=== PATIENT | male | born 1975 | race Caucasian/White ===

== ENCOUNTER 2018-11-16 10:00 | Outpatient (RCR) | payer MEDICAID, SELFPAY ==
--- NOTE | 2018-11-13 09:05 | HP.PTEVAL_ITS ---
Patient's Visit Information CRYSTAL OVALLES is a 43 year old M referred to Physical Therapy by Angelique Barclay DPM with a diagnosis of Left Ankle Tendonitits. Date of Evaluation: 11/13/18 Physical Therapist: Shaylee Carrion DPT - Visit Plan Frequency: 2x /Week Duration: 4 Weeks Plan: Focus on LE strength/stabilization with US as modality - Subjective Findings: Left ankle has been causing him problems for years- 1994 when he was in the - sprained really bad and then again in 1998. Recently its been hurting more when standing on it- he has no arch and tendonitits with OA. Has had x-rays of the foot and ankle. Pain is located along the lateral ankle joint and across the top of the joint and into the medial side. Worst: 07/25 Agg: standing, sitting. Eases: nothing Best: 11/25 has had prednisone- but has not had injections. No radiating pains- describes as throbbing, shooting, and achy pains. No N/T in the toes. Wears orthotics in the shoes- prescription in his work boots. Work: [employer]or- standing all day long- has a pad to stand on but they don't help. No significant changes in the past year to make his ankle hurt more. Normally in work boots but does wear sandles during the day if he needs to just run somewhere. Sleep: not disturbed. PMHx: 2 heart murmors when he was little Meds: none - Objective Posture: Fh, RS- does correct with verbal cueing but does not maintain. Gait: slightly antalgic- decreased stance on the left LE with poor heel/toe pattern. SLS: unable without LOB but will weight shift. HR/TR: able with UE A with pain. Observation: severe pes planus on the left. ROM: WFL in all planes with pain reported with end range inversion. Strength: Ankle: 4/5 throughout with pain during resisted inversion/eversion. Knee: 5/5, Hip: 4+/5 Core: fair. Flex: HS: severe Gastroc: mod Soleus: mild - Goals Goal 1:: Patient will be I with HEP and progression Goal Time Frame: 4-6 Weeks Goal 2:: Patient will SLS for 15 sec without LOB Goal Time Frame: 4-6 Weeks Goal 3:: Patient will ambulate >300 feet with a normalized gait pattern Goal Time Frame: 4-6 Weeks Goal 4:: Patient will report 5/10 pain for 1 week Goal Time Frame: 4-6 Weeks - Rehabilitation Potential Physical Therapy Diagnosis: Patient presents with hypomobility- he has decreased strength and muscular endurance leading to increased pain and inability to perform SLS Rehabilitation Potential: Fair - Anticipated Interventions Patient/Client Instruction: Educate patient on: Benefits of Fitness Program Therapeutic Exercise to Include: Strength training, Endurance training, Balance training, Body mechanics, Flexibilty training, Gait and locomotor training, Dynamic Lumbar Stabilization For the Purpose of:: To improve muscle performance and motor function TENS: Yes Cryotherapy (ice pack, ice massage): Yes Thermo therapy (hot pack): Yes Ultrasound (thermal/non thermal): Yes Thank you for the opportunity to evaluate your patient. For Medicare and Medicare HMO plans, please review the plan of care and approve it. It will need to be FAXED BACK to us at [phone] for Medicare purposes. For Medicare only, by signing this I certify the plan of care. Please let me know if there are questions or concerns regarding this plan of care. Physician Signature: Date:
--- NOTE | 2018-11-30 11:41 | HP.PT.NRP ---
HP - Discharge Summary (1) - Patient Information CRYSTAL OVALLES was seen in my office for initial evaluation on 11/13/18. The following Plan of Care was established for this patient: Initial Frequency: 2x /Week Initial Duration: 4 Weeks - Anticipated Interventions Patient/Client Instruction: Educate patient on: Benefits of Fitness Program Therapeutic Exercise to Include: Strength training, Endurance training, Balance training, Body mechanics, Flexibilty training, Gait and locomotor training, Dynamic Lumbar Stabilization For the Purpose of:: To improve muscle performance and motor function TENS: Yes Cryotherapy (ice pack, ice massage): Yes Thermo therapy (hot pack): Yes Ultrasound (thermal/non thermal): Yes This patient was last seen in our office . Pertinent comments regarding their Physical therapy will appear below: Patient has no-showed his last 4 apts and is appropriate for d/c At this point I will be discontinuing this patient from physical therapy. I would be happy to see this patient again in the future if found appropriate by the physician. Thank you! Shaylee Carrion DPT
== END 2018-11-16 19:00 | disposition home or self-care (01) ==
LOC: PT 10:00
PROVIDERS: Family Provider Internal Medicine; PCP Internal Medicine; Referring Provider Podiatrist Foot & Ankle Surgery; Visit Provider Podiatrist Foot & Ankle Surgery
DX: M76.70 Peroneal tendinitis, unspecified leg (principal)
CPT/HCPCS: 97035; 97110; 97161

== ENCOUNTER 2019-10-20 22:59 | Emergency (ER) | payer OTHER, MEDICAID, SELFPAY ==
[2019-10-20 23:00] VITALS: BP 157/108; PULSE 90; RESP 16; TEMP 36.6; O2SAT 99; BMI 31.6
--- NOTE | 2019-10-20 23:14 | ED.VISSUMM ---
- ER Visit Summary Date of Service: 10/20/19 Chief Complaint: Left long finger laceration at work History of Present Illness: The patient is a 43 M no significant past medical history. [id number]. Tetanus is greater than 10 years old and will need to be updated. Patient was at work tonight at [employer]. Accidentally lacerated his left long finger just lateral to the nailbed and the nail on a steel rack. No foreign body. This occurred around 9 PM. He continues to have intermittent bleeding. He denies any foreign body. No other injuries. Physical Examination: Well-appearing middle-aged male. Vital signs stable afebrile. HEENT exam unremarkable. Lungs are clear. Heart regular rhythm. Abdomen soft. Patient is moving all 4 extremities. Neurovascular intact. His left long finger on the ulnar side of the nail and nailbed just lateral to it there is a tissue avulsion laceration. It is approximately 1/2 to 2 cm in length. There is really no skin the pull together it will be Dermabond repaired. He has full range of motion all digits of the left hand. There is no signs of foreign body or infection. No bony deformity. The finger is neurovascularly intact. Test Results: None Emergency Department Course and Treatment: Finger was thoroughly washed and cleaned. Dried. Dermabond repaired. Good hemostasis and wound closure was obtained. Dressing applied discharged home. Tetanus updated Treatment Plan: Wound care. Disposition: Discharge Impression: Left long finger tissue avulsion laceration of 2 cm with Dermabond ER repair Tetanus updated Worker's Comp. injury This note was generated with [employer] dictation software. It may contain incorrect words, spelling, and punctuation that were not noted in review of the chart prior to signing ED Disposition - Plan for ED Patient: Referrals: Kierra Troy MD [Primary Care Provider] -
--- NOTE | 2019-10-20 23:17 | ED.DEP ---
ED Disposition - Plan for ED Patient: Disposition: Home or Assisted Living Instructions: LACERATION, Extremity (Skin Glue) Referrals: Kierra Troy MD [Primary Care Provider] - As Needed Additional Instructions: Keep clean and dry. The glue will start drying out and flaking off later this week. Watch for any signs of infection. Your tetanus is up-to-date and should be good for the next 10 years.
[2019-10-20] MEDS: Diphth,Pertuss(Acell),Tet Vac 0.5 ML Vial IM (23:24)
[2019-10-20 23:32] VITALS: BP 135/103; PULSE 83; RESP 18; O2SAT 99
== END 2019-10-20 23:37 | disposition home or self-care (01) ==
PROVIDERS: Emergency Provider Emergency Medicine; Family Provider Internal Medicine; PCP Internal Medicine
DX: S61.213A Laceration without foreign body of left middle finger without damage to nail, initial encounter (principal); Z23 Encounter for immunization; W26.9XXA Contact with unspecified sharp object(s), initial encounter; Y93.9 Activity, unspecified; Y92.9 Unspecified place or not applicable
CPT/HCPCS: 12001; 90715; 99282

== ENCOUNTER 2019-10-29 01:12 | Emergency (ER) | payer MEDICAID, SELFPAY ==
[2019-10-29 01:14] VITALS: BP 162/95; PULSE 75; RESP 16; TEMP 36.7; O2SAT 100; BMI 31.7
--- NOTE | 2019-10-29 01:14 | RAD_ITS ---
STUDY: X-RAY - LUMBAR SPINE REASON FOR EXAM: Male, 43 years old. lower back pain starting when getting into truck on 10/27 TECHNIQUE: 3 view(s) of the lumbar spine were obtained. COMPARISON: None FINDINGS: Normal lumbar lordosis. There is no substantial scoliosis. There is a normal alignment of the vertebrae. There is multilevel endplate spondylosis of the lumbar vertebrae. There is multi-level degenerative disc disease with multi-level disc space narrowing. There is no demonstrated fracture. There is multilevel bilateral facet hypertrophy. The soft tissue structures are unremarkable. RAD/Lumbar Spine 2 or 3 Views IMPRESSION: Multilevel spondylosis/degenerative disease with no acute fracture or spondylolisthesis. Electronically Signed: Mayra Kerr MD at 1:50 EST , Service support ,
--- NOTE | 2019-10-29 01:15 | ED.VIS.GEN ---
History of Present Illness Chief Complaint: Back Informant: Patient Onset: Days Context: Gradual Onset Timing: Continuous Current Severity: Moderate Maximum Severity: Moderate Narrative: The patient is an otherwise healthy male who presents to the emergency department with low back pain. The patient states that on Monday, he was trying to get into his truck. He states that when he was twisting, he felt something pull in his back. Since then, he had a pain in his left low back that does not radiate. He states is worse when he moves or bends. He has taken some Motrin with some improvement. He denies any radiation down the legs. He denies any difficulty with urinating or moving his bowels. He denies any change in gait. He said no fevers or chills. Prior similar symptoms: No Recent Illness/Hospitalization: No Past Medical History - Allergies and Home Meds Allergies/Adverse Reactions: Allergies Penicillins Allergy (Verified 10/29/19 01:13) Unknown Primary Care Physician: Kierra Troy MD [Primary Care Provider] - Prior records reviewed: Yes Past Medical History: None Surgical History: no surgical history Smoking Status: Former smoker Review of Systems General: Denies: Chills, Fever, Sweats Eyes: Denies: Visual changes - bilaterally, Diplopia ENT: Denies: Rhinorrhea, Sore throat Cardiovascular: Denies: Chest pain, Palpitations Respiratory: Denies: Dyspnea, Cough, Dyspnea on exertion Gastrointestinal: Denies: Abdominal pain, Nausea, Vomiting, Diarrhea, Melena, Hematochezia Genitourinary: Denies: Dysuria, Hematuria, Frequency Musculoskeletal: Reports: Back pain Skin: Denies: Rash, Wounds Neurological: Denies: Headache, Weakness, Numbness Physical Exam Inital Vital Signs reviewed: Yes General: Well nourished, Well developed, No Acute Distress Head: Normocephalic, Atraumatic Eyes: Perrl, EOMI ENT: Moist mucous membranes, No rhinorrhea Neck: Supple, Nontender Cardiovascular: Regular rate, Regular rhythm, No murmurs Respiratory: No distress, CTA bilaterally, Chest nontender Abdomen: Soft, Nontender, Nondistended, Normal bowel sounds Back: Normal Inspection. Negative for: CVA tenderness, Spinal tenderness Extremities: Nontender, No edema Skin: Normal color, No rash Neurological: Alert, Oriented x3, Cranial nerves II-XII grossly intact, Normal Strength, Normal Sensation Psychological: Normal affect, Normal Mood Diagnostic/Tx/Re-eval - Medical Decision Making Plain films were obtained of the lumbar spine. There is no evidence of acute fracture. There is no evidence of compression or dislocation. Patient was treated with anti-inflammatories and antispasmodics with some improvement. He has no red flag symptoms. I do feel that this is likely musculoskeletal strain. He will be treated with anti-inflammatories and antispasmodics at home. He will be discharged and was counseled on concerning symptoms and reasons to return. Impression 1. Acute lumbar strain ED Disposition - Plan for ED Patient: Instructions: Back Sprain/Strain Prescriptions: cycloBENZAPRine HCl [Flexeril] 10 mg PO TID PRN #20 tab PRN Reason: Muscle Spasm Prescription Printed Naproxen [Naprosyn] 500 mg PO BID PRN #20 tab Prescription Printed Referrals: Kierra Troy MD [Primary Care Provider] -
[2019-10-29] MEDS: Orphenadrine 60 MG/2 ML Ampul IM (01:24)
[2019-10-29] MEDS: Ketorolac 60 MG/2 ML Vial IM (01:24)
[2019-10-29 01:38] VITALS: BP 162/95; PULSE 75; RESP 16; O2SAT 100
== END 2019-10-29 02:05 | disposition home or self-care (01) ==
PROVIDERS: Emergency Provider Emergency Medicine; Family Provider Internal Medicine; PCP Internal Medicine
DX: S39.012A Strain of muscle, fascia and tendon of lower back, initial encounter (principal); X50.1XXA Overexertion from prolonged static or awkward postures, initial encounter; Y93.9 Activity, unspecified; Y92.9 Unspecified place or not applicable; Z87.891 Personal history of nicotine dependence
CPT/HCPCS: 72100; 96372; 99282

== ENCOUNTER 2020-11-29 22:05 | Emergency (ER) | payer MEDICAID, SELFPAY ==
[2020-11-29 22:07] VITALS: BP 143/95; PULSE 83; RESP 20; TEMP 35.9; O2SAT 98; BMI 30.9
--- NOTE | 2020-11-29 22:24 | EKG12_ITS ---
Test Reason : DYSRYTHMIA Blood Pressure : / mmHG Vent. Rate : 065 BPM Atrial Rate : 065 BPM P-R Int : 210 ms QRS Dur : 112 ms QT Int : 378 ms P-R-T Axes : 028 -18 011 degrees QTc Int : 393 ms Sinus rhythm with 1st degree A-V block Otherwise normal ECG Confirmed by ARJUN JOSEPH, BROOKE ([id number]), digital editor ERIC LOOMIS ([id number]) on 12/03/2020 1:29:30 PM Referred By: DEONDRE Confirmed By:BROOKE DÍAZ MD
--- NOTE | 2020-11-29 22:27 | ED.VIS.GEN ---
History of Present Illness Chief Complaint: Other, Pain/Inj Informant: Patient Onset: Yesterday Context: Gradual Onset Timing: Waxes and wanes Current Severity: Mild Maximum Severity: Moderate Narrative: Patient present secondary left jaw pain. He developed Covid symptoms on November 26 including cough, body aches, fever. He was tested on the and received positive test result on the . Patient reports that approximate 24 hours ago he developed left jaw pain. He states he initially was using some topical analgesic gel to his teeth, gums, and buccal surface. This was initially helping to dull the pain. Tonight after eating dinner he drank some orange juice and had sudden worsening of pain. He tried using the analgesic gel and had no relief of symptoms. Patient also reports increased shortness of breath today. Past Medical History - Allergies and Home Meds Allergies/Adverse Reactions: Allergies Penicillins Allergy (Verified 11/29/20 22:06) Unknown Primary Care Physician: Kierra Troy MD [Primary Care Provider] - Past Medical History: None Surgical History: no surgical history Lives: With Family Smoking Status: Never smoker Review of Systems General: Reports: Fever Eyes: Reports: - - Bilateral eye pain. Denies: Visual changes - bilaterally ENT: Reports: - - Left jaw pain. Denies: Rhinorrhea, Sore throat Cardiovascular: Denies: Chest pain Respiratory: Reports: Dyspnea, Cough Gastrointestinal: Denies: Abdominal pain, Vomiting, Diarrhea Genitourinary: Denies: Dysuria Musculoskeletal: Denies: Swelling, Extremity Pain Skin: Denies: Rash Neurological: Denies: Headache Hematologic: Denies: Easy bruising, Easy bleeding Allergy: Denies: Uticaria Physical Exam Vital Signs/Narrative: Vital Signs Temp Pulse Resp BP Pulse Ox 11/29/20 22:07 96.7 F L 83 20 H 143/95 H 98 Inital Vital Signs reviewed: Yes General: Well nourished, Well developed Head: Normocephalic Eyes: Perrl, EOMI ENT: Moist mucous membranes, - - No focal dental tenderness. No significant gum edema. Posterior pharynx is normal. No lesions along the buccal surface. No facial swelling. Cardiovascular: Regular rate, Regular rhythm Respiratory: No distress, CTA bilaterally Abdomen: Soft, Nontender Extremities: Nontender Skin: Normal color Neurological: Alert, Oriented x3 Psychological: Normal affect Diagnostic/Tx/Re-eval Chest X-Ray - ED: 1 View, Read by ED Physician, Normal, Heart, Lungs, Mediastinum Impressions Chest X-Ray 11/29/20 22:50 IMPRESSION: No acute cardiopulmonary disease. Left sixth and seventh posterior rib fractures. Electronically Signed: Pablito Miranda MD at 23:17 EST , Service support , 11/29/20 22:50 Chest 1 View (Portable) [RAD] Stat Laboratory Results 11/29/20 22:35 D-Dimer Quant (PE/DVT) 0.37 - EKG Initial EKG Interpretation: Sinus Rhythm - Sinus at 65 with first-degree AV block. No acute ischemia. - Medical Decision Making Patient's left jaw pain is not reproducible. He does not have left facial swelling consistent with typical salivary duct blockage. With his Covid status I did elect to do an EKG, chest x-ray, and D-dimer. These are all unremarkable. Patient is reassured with this. He will start using ibuprofen regularly. I did advise him that if he notices any facial swelling or further left facial pain with drinking sour liquids that this may be inflammation of his salivary duct. He was advised that treatment is to eat lemon candies or drink something sour to help flush this out. ED Disposition - Plan for ED Patient: Disposition: Home or Assisted Living Diagnosis: Jaw pain Instructions: ED Pain, Acute, Uncertain Cause Referrals: Kierra Troy MD [Primary Care Provider] - 1 Week if not improving
--- NOTE | 2020-11-29 22:50 | RAD_ITS ---
STUDY: X-RAY CHEST REASON FOR EXAM: Male, 45 years old. Covid + and left jaw pain TECHNIQUE: AP portable chest. COMPARISON: May 02, 2015 FINDINGS: The lungs are clear and expanded. There is no demonstrated pleural abnormality. Normal size heart. Normal mediastinum and junito. Normal visualized pulmonary arteries. Normal visualized aortic arch and descending thoracic aorta. Normal visualized thoracic spine. Left sixth and seventh posterior rib fractures which are not completely healed. There is no demonstrated abnormality of the visualized soft tissue structures of the upper abdomen. RAD/Chest 1 View (Portable) IMPRESSION: No acute cardiopulmonary disease. Left sixth and seventh posterior rib fractures. Electronically Signed: Pablito Miranda MD at 23:17 EST , Service support ,
[2020-11-29 23:01] LABS: D-Dimer Quantitative (DVT/PE) 0.37 FEU/ug/m (0.27-0.49)
[2020-11-29 23:49] VITALS: BP 127/95; PULSE 66; RESP 16; O2SAT 96
== END 2020-11-30 00:10 | disposition home or self-care (01) ==
PROVIDERS: Emergency Provider Emergency Medicine; PCP Internal Medicine
DX: R68.84 Jaw pain (principal); U07.1 COVID-19; I44.0 Atrioventricular block, first degree
CPT/HCPCS: 71045; 85379; 93005; 99284; A4216

== ENCOUNTER 2021-12-10 22:30 | Emergency (ER) | payer MEDICAID, SELFPAY ==
[2021-12-10 22:30] VITALS: BP 165/109; PULSE 85; RESP 16; TEMP 36.2; O2SAT 98; BMI 32.4
--- NOTE | 2021-12-11 00:56 | RAD_ITS ---
HISTORY: Injury/Pain EXAMINATION/TECHNIQUE: XR Spine Thoracic 3 Views: 3 view thoracic spine COMPARISON: Lumbar spine radiograph on same day FINDINGS: VERTEBRAE: Preserved vertebral body height. No fracture. No spondylolisthesis. Preservation of the normal thoracic kyphosis. Anterior vertebral bridging osteophyte in the mid thoracic spine. Mild thoracolumbar endplate osteophyte formation. DISCS: Disc spaces are maintained. INCLUDED CHEST/ABDOMEN: No acute abnormalities. RAD/Thoracic Spine 3 Views IMPRESSION: No evidence of thoracic spinal fracture or spondylolisthesis. Mild spondylosis. at 0211 Reported and signed by: Maxx Prince MD Electronically Signed: Maxx Prince MD at 2:10 EST ,
[2021-12-11] MEDS: Morphine 4 MG/ML Syringe IM (01:00)
[2021-12-11] MEDS: Ibuprofen 600 MG Tablet PO (01:00)
--- NOTE | 2021-12-11 01:10 | ED.VIS.BACK ---
HPI History of Present Illness Chief Complaint: Back Informant: patient Narrative Narrative: Patient is a 46-year-old male with no significant past medical history presenting for evaluation after fall. Patient states he walked outside onto his front steps when he slipped on the ice and landed with his back on the bottom step. He states the edge of the stair went into his back. This happened this evening. He has been able to walk since was having significant pain. Did not take anything for pain prior to arrival. Denies associated numbness or tingling. Pain is worse when he tries to bend over. Is able to ambulate. Has been able to urinate since this happened. No other complaints at this time. [facility] Medical History COVID-19 Home Medications cyclobenzaprine 10 mg PO TID PRN #14 tab 12/11/21 [Rx Last Taken Unknown] ibuprofen 600 mg PO Q6H PRN PRN #20 tab 12/11/21 [Rx Last Taken Unknown] Allergy/AdvReac Type Severity Reaction Status Date / Time Penicillins Allergy Unknown Verified 12/10/21 22:32 Social History Smoking Status: Never smoker ROS ROS ED Constitutional Constitutional ED: Denies chills or fever(s) Eyes Eyes: Denies blurry vision Cardiovascular Cardiovascular: Denies chest pain or palpitations Respiratory/Chest Respiratory/Chest: Denies dyspnea Gastrointestinal Gastrointestinal: Denies abdominal pain, diarrhea, nausea or vomiting Genitourinary Genitourinary ED: Denies dysuria or hematuria Musculoskeletal Musculoskeletal: Reports back pain; Denies arthralgias, myalgias or neck pain Integumentary Denies rash Neurologic Neurologic: Denies headache(s), paresthesias or weakness Psychiatric Psychiatric: Denies depression EXAM Physical Exam Const Vital Signs: 12/10/21 22:30 12/11/21 03:06 Temperature 97.2 F L Temperature Source Temporal Pulse Rate 85 80 Respiratory Rate 16 18 Blood Pressure 165/109 H Blood Pressure Mean 127 Pulse Ox 98 97 Oxygen Delivery Method Room Air Positive well nourished and well developed General Appearance ED: well developed HEENT Reports moist mucous membranes Negative for trauma Eyes PERRL and EOMs intact bilaterally Neck supple Neck Narrative: Normal range of motion General: Negative for tenderness Resp normal respiratory effort and clear to auscultation bilaterally Cardio regular rate, regular rhythm and no murmurs GI normal to inspection, nondistended, normoactive bowel sounds, soft to palpation, non-distended and no masses Back/Spine normal to inspection Back/Spine Narrative: No midline tenderness. Patient has of diffuse tenderness of the paraspinal muscles around the thoracolumbar junction with a very small area of erythema to the right of midline in that area Extremity normal to inspection Extremity Narrative: Normal strength with flexion of the legs as well as plantar flexion/dorsiflexion General Extremety ED: Negative for edema or tenderness General Extremity: Negative for edema Neuro oriented x3 and no sensory deficits noted Sensorium / Orientation: alert Motor Exam: strength 5/5 throughout Skin no rashes or lesions noted and no wounds Skin Narrative: See above MDM MDM MDM Narrative Medical decision making narrative: Patient valuate for back pain after mechanical fall. He slipped and landed on a step.Patient appears nontoxic but uncomfortable secondary to his back pain. X-rays obtained do not show any acute process. He has an incidental finding of left nephrolithiasis which he is informed of. Patient states he does have a history of a splenic coil but this is not consistent with that. Patient is given a dose of IM morphine and oral Motrin in the ER. On repeat evaluation he states he feels better. He seems more comfortable. Patient is neuro vastly intact. I do not think more imaging is indicated at this time. He is not have findings consistent with cauda equina syndrome. Patient be treated as back contusion with Flexeril and Motrin. Counseled on return precautions. Is given a work note for tonight per his request. Patient's son is able to drive him home. Radiography Diagnostic Testing: Clinical Impression(s) from Imaging Studies Thoracic Spine X-Ray 12/11/21 00:56 IMPRESSION: No evidence of thoracic spinal fracture or spondylolisthesis. Mild spondylosis. at 0211 Reported and signed by: Maxx Prince MD Electronically Signed: Maxx Prince MD at 2:10 EST , Lumbar Spine X-Ray 12/11/21 01:23 IMPRESSION: No evidence of lumbar spinal fracture or spondylolisthesis. Mild spondylosis as above. Left nephrolithiasis with questionable stone or other soft tissue calcification partially obscured by the left L3 transverse process. CT could further evaluate for ureteral stone as clinically indicated. at 0215 Reported and signed by: Maxx Prince MD Electronically Signed: Maxx Prince MD at 2:14 EST , Discharge Plan Triage Chief Complaint: Back ED Provider: Bridget Jimenez Dx/Rx/DC Orders Clinical Impression: Contusion of back, Fall from slipping on ice Instructions: ED Back Contusion Prescriptions: New cyclobenzaprine 10 mg tablet 10 mg PO TID PRN (Reason: muscle spasm) Qty: 14 RF: 0 ibuprofen 600 mg tablet 600 mg PO Q6H PRN PRN (Reason: Pain Score 1-10/10) Qty: 20 RF: 0 Primary Care Provider: Kierra Troy Referrals: Kierra Troy MD [Primary Care Provider] - Disposition Disposition: Home, Self Care Discharge Date/Time: 12/11/21 03:07
--- NOTE | 2021-12-11 01:23 | RAD_ITS ---
HISTORY: Injury/Pain EXAMINATION/TECHNIQUE: XR Spine Lumbar 2 or 3 Views: Three-view lumbar spine COMPARISON: Thoracic spine radiograph on same day FINDINGS: VERTEBRAE: 5 [id number] lumbar type vertebra. No fracture or acute compression deformity. Preservation of the normal lumbar lordosis. No spondylolisthesis. Mild anterior and posterior vertebral osteophyte formation is prominent L1-L2 and lower lumbar spine. DISCS: Disc spaces are maintained. INCLUDED ABDOMEN: Calcifications up to 1.4 cm in size projected over the left renal lower pole. Ill-defined 5 mm hyperdensity partially projects over the left L3 transverse process tip in the general region of the left ureter. Left pelvic phleboliths are also present. RAD/Lumbar Spine 2 or 3 Views IMPRESSION: No evidence of lumbar spinal fracture or spondylolisthesis. Mild spondylosis as above. Left nephrolithiasis with questionable stone or other soft tissue calcification partially obscured by the left L3 transverse process. CT could further evaluate for ureteral stone as clinically indicated. at 0215 Reported and signed by: Maxx Prince MD Electronically Signed: Maxx Prince MD at 2:14 EST ,
[2021-12-11 03:06] VITALS: PULSE 80; RESP 18; O2SAT 97
== END 2021-12-11 03:07 | disposition home or self-care (01) ==
PROVIDERS: Emergency Provider Emergency Medicine; PCP Internal Medicine; Visit Provider Emergency Medicine
DX: S20.221A Contusion of right back wall of thorax, initial encounter (principal); W00.0XXA Fall on same level due to ice and snow, initial encounter; Y93.9 Activity, unspecified; Y92.9 Unspecified place or not applicable; Z86.16 Personal history of COVID-19; N20.0 Calculus of kidney
CPT/HCPCS: 72072; 72100; 96372; 99283

== ENCOUNTER 2022-10-17 19:07 | Emergency (ER) | payer MEDICAID, SELFPAY ==
[2022-10-17 19:07] VITALS: BP 151/90; PULSE 96; RESP 16; TEMP 36.6; O2SAT 97; BMI 31.8
--- NOTE | 2022-10-17 19:19 | RAD_ITS ---
STUDY: X-RAY - RIGHT KNEE REASON FOR EXAM: Male, 46 years old. PAIN TECHNIQUE: 3 view(s) of the knee. COMPARISON: FINDINGS: Normal visualized distal femur. Normal visualized proximal tibia and fibula. Normal proximal tibiofibular articulation. There is mild degenerative arthrosis of the medial femorotibial compartment. Normal lateral femorotibial compartment. There is mild degenerative arthrosis of the patellofemoral articulation. The soft tissue structures are unremarkable. RAD/Knee 3 Views IMPRESSION: Degenerative arthrosis. MRI may be useful. Electronically Signed: Derek Patel MD at 20:15 EST ,
--- NOTE | 2022-10-17 21:13 | EDS_ITS ---
HPI <CHANTEL Leone - Last Filed: 10/17/22 22:34> History of Present Illness Chief Complaint: Lower Extremity Injury Narrative Narrative: Patient presents with swelling and pain to his right knee that he has had for several weeks. He states he is able to ambulate but that it causes pain and feels like his knee is very stiff with flexing. He has been icing his knee and taking ibuprofen with minimal relief. Patient denies any pain or swelling to his R lower leg and denies history of blood clots. Patient denies injury to his right knee. PFSH <CHANTEL Leone - Last Filed: 10/17/22 22:34> [facility] Medical History COVID-19 Home Medications cyclobenzaprine 10 mg tablet 10 mg PO TID PRN muscle spasm #14 tabs 12/11/21 [Rx Last Taken Unknown] ibuprofen 600 mg tablet 600 mg PO Q6H PRN PRN Pain Score 1-10/10 #20 tabs 12/11/21 [Rx Last Taken Unknown] meloxicam 15 mg tablet 15 mg PO DAILY #30 tabs 12/15/21 [Rx Last Taken Unknown] Allergy/AdvReac Type Severity Reaction Status Date / Time Penicillins Allergy Unknown Verified 10/17/22 19:09 Social History Smoking Status: Never smoker ROS <CHANTEL Leone - Last Filed: 10/17/22 22:34> ROS ED Constitutional Constitutional ED: Denies chills, fever(s) or sweats Eyes Eyes: Denies blurry vision or change in vision ENT ENT ED: Denies rhinorrhea or sore throat Cardiovascular Cardiovascular: Denies chest pain, palpitations or racing heartbeat Respiratory/Chest Respiratory/Chest: Denies cough, dyspnea or dyspnea on exertion Gastrointestinal Gastrointestinal: Denies abdominal pain, diarrhea, nausea or vomiting Genitourinary Genitourinary ED: Denies dysuria, hematuria or urinary frequency Musculoskeletal Musculoskeletal: Reports joint pain and joint stiffness Integumentary Denies abscess, Abrasions or rash Neurologic Neurologic: Denies headache(s), paresthesias or weakness Psychiatric Psychiatric: Denies anxiety, depression or suicidal ideation Allergic/Immunologic Allergic/Immunologic ED: Denies mouth swelling, tongue swelling or urticaria EXAM <CHANTEL Leone - Last Filed: 10/17/22 22:34> Physical Exam Const Vital Signs: 10/17/22 19:07 Temperature 98 F Temperature Source Temporal Pulse Rate 96 Respiratory Rate 16 Blood Pressure 151/90 H Blood Pressure Mean 110 Pulse Ox 97 Oxygen Delivery Method Room Air Positive well nourished and well developed General Appearance ED: well developed and NAD HEENT Reports moist mucous membranes Eyes PERRL and EOMs intact bilaterally Neck no lymphadenopathy and supple Chest Wall inspection of chest normal and palpation of chest normal Resp normal respiratory effort and clear to auscultation bilaterally Cardio regular rate, regular rhythm and no murmurs GI non-tender, non-distended and no masses Palpation: soft Extremity Extremity Narrative: Patient has edema to the suprapatellar region of the right knee. It does look like patient has some ecchymosis around the right knee but he attributes this to kneeling at work and working with a material that stains his skin. Patient does have tenderness to palpation of his right knee. No crepitus. The swelling does not extend to the right lower leg. Neuro oriented x3, CN's II-XII intact bilaterally and no sensory deficits noted Sensorium / Orientation: alert Motor Exam: strength 5/5 throughout Psych mental status grossly normal Skin no rashes or lesions noted, no wounds and skin turgor normal <Dr. Bridget Jimenez DO - Last Filed: 10/25/22 17:08> Physical Exam Const Vital Signs: 10/17/22 19:07 Temperature 98 F Temperature Source Temporal Pulse Rate 96 Respiratory Rate 16 Blood Pressure 151/90 H Blood Pressure Mean 110 Pulse Ox 97 Oxygen Delivery Method Room Air MDM <CHANTEL Leone - Last Filed: 10/17/22 22:34> [facility] Narrative Medical decision making narrative: Patient has had right knee pain for several weeks. He states his made him come in today. Patient states he does kneel a lot at work but denies injuring his knee. There is localized swelling consistent with suprapatellar bursitis. Patient has been given RICE instructions. He has been given a dose of Kenalog here as well as Tylenol. He will be following up with ortho. Knee x-ray shows degenerative arthrosis. Patient is comfortable with plan. He will be discharged home in stable condition. He has been given return instructions. Radiography Diagnostic Testing: Clinical Impression(s) from Imaging Studies Knee X-Ray 10/17/22 19:19 IMPRESSION: Degenerative arthrosis. MRI may be useful. Electronically Signed: Derek Patel MD at 20:15 EST Reading Location ID and State: [id number] / [employer] Tel , Service support , X-ray also reviewed and interpreted by attending ED physician. <Dr. Bridget Jimenez, DO - Last Filed: 10/25/22 17:08> MDM Radiography Diagnostic Testing: Clinical Impression(s) from Imaging Studies Knee X-Ray 10/17/22 19:19 IMPRESSION: Degenerative arthrosis. MRI may be useful. Electronically Signed: Derek Patel MD at 20:15 EST Reading Location ID and State: [id number] / [employer] Tel , Service support , Treatment and Re-Evaluation Narrative: I have personally performed a face to face assessment of the patient and have reviewed the AIR Note. I performed a substantive portion of the visit including all aspects of the following. My martinez findings include: History is patient is a 46-year-old male no significant past medical history presenting with atraumatic right knee pain. Patient is not have any significant overlying erythema/joint effusion. I am not suspicious for gouty arthropathy or septic joint. His vital signs are normal. He does have swelling of the proximal aspect of the knee consistent with bursitis. Patient is treated with a dose of Kenalog for this and given Ortho referral. X-ray shows degenerative changes of the knee. This is interpreted by myself as well as radiology. Counseled alternate ibuprofen and Tylenol for pain control as well as rice therapy. He verbalizes agreement understand this plan. He is neuro vastly intact distally. I do not think this is a DVT. I do not think an ultrasound is indicated. Discharge Plan Triage Chief Complaint: Lower Extremity Injury ED Midlevel Provider: Letty Conde ED Provider: Bridget Jimenez Dx/Rx/DC Orders Clinical Impression: Bursitis of right knee Instructions: ED RICE Prescriptions: No Action meloxicam 15 mg tablet 15 mg PO DAILY Qty: 30 0RF Rx Instructions: stop ALL other NSAIDS cyclobenzaprine 10 mg tablet 10 mg PO TID PRN (Reason: muscle spasm) Qty: 14 0RF ibuprofen 600 mg tablet 600 mg PO Q6H PRN PRN (Reason: Pain Score 1-10/10) Qty: 20 0RF Primary Care Provider: Kierra Troy Referrals: Kierra Troy MD [Primary Care Provider] - Raphael Luke MD [Med Staff - Active Staff] - 5-7 Days Activity Restrictions/Additional Instructions: Please follow-up with orthopedic doctor. Rest the knee, ice the knee for 10 to 15 minutes 3-4 times a day for the next few days, and elevate the knee when possible. You can take ibuprofen and Tylenol for pain relief. Disposition Disposition: Home, Self Care Discharge Date/Time: 10/17/22 22:19
[2022-10-17] MEDS: Acetaminophen 325 MG Tablet 650 MG PO (22:22)
[2022-10-17] MEDS: Triamcinolone Acetonide 40 MG/ML Vial IM (22:23)
== END 2022-10-17 22:19 | disposition home or self-care (01) ==
PROVIDERS: Emergency Provider Emergency Medicine; PCP Internal Medicine; Visit Provider Emergency Medicine
DX: M70.51 Other bursitis of knee, right knee (principal); Z86.16 Personal history of COVID-19
CPT/HCPCS: 73562; 96372; 99283

== ENCOUNTER → 2022-11-30 | Outpatient (CLI) | payer MEDICAID, SELFPAY ==
--- NOTE | 2022-11-30 08:45 | MRI_ITS ---
EXAM: MR RIGHT LOWER EXTREMITY WITHOUT INTRAVENOUS CONTRAST, KNEE CLINICAL INDICATION: pain TECHNIQUE: Multiplanar and multisequence MR images of the right knee without intravenous contrast. This report was created using [employer] report generation technology. COMPARISON: October 17, 2022 FINDINGS: BONES/JOINTS: Focal subchondral marrow signal alteration involving the medial patellar facet near the median ridge may reflect overlying chondral loss which may not be well demonstrated on this study. Torn ligament of the posterior horn of the medial meniscus with associated peripheral extrusion of the body segment by 5 mm. The posterior horn and body segment show degenerative appearance with suspected complex tearing also of the body segment of the medial meniscus. Overall, moderate osteoarthritic changes of the medial femorotibial compartment with associated chondral loss and peripheral marginal osteophytes. No recent fracture. EXTENSOR MECHANISM: Unremarkable. MEDIAL MENISCUS: Unremarkable. LATERAL MENISCUS: Unremarkable. No lateral meniscal tear. MEDIAL CAPSULE/SUPPORTING STRUCTURES: Focal moderate to high-grade tearing involving the medial patellofemoral ligament at the patellar attachment. Otherwise unremarkable. LATERAL CAPSULE/SUPPORTING STRUCTURES: Unremarkable. Lateral collateral ligamentous complex, inclusive of the popliteal tendon, are intact. ANTERIOR CRUCIATE LIGAMENT: Unremarkable. Intact. POSTERIOR CRUCIATE LIGAMENT: Unremarkable. Intact. MUSCLES: Unremarkable. CARTILAGE: See above. FLUID: Large suprapatellar joint effusion. No significant synovitis or intra-articular ossific bodies. No Galeas''s cyst. MRI/Lower Ext Joint Only (Routine) IMPRESSION: 1. Torn ligament of the posterior horn of the medial meniscus with associated peripheral extrusion of the body segment by 5 mm. The posterior horn and body segment show degenerative appearance with suspected complex tearing also of the body segment of the medial meniscus. 2. Large suprapatellar joint effusion without Galeas''s cyst, significant synovitis or intra-articular ossific bodies. 3. Overall, moderate osteoarthritic changes of the medial femorotibial compartment 4. Focal subchondral marrow signal alteration involving the medial patellar facet near the median ridge may reflect overlying chondral loss which may not be well demonstrated on this study. 5. Focal moderate to high-grade tearing involving the medial patellofemoral ligament at the patellar attachment. Electronically Signed: Osman Torrez MD at 22:45 EST ,
== END | disposition home or self-care (01) ==
LOC: MRI 08:44
PROVIDERS: PCP Internal Medicine; Referring Provider Orthopaedic Surgery; Visit Provider Orthopaedic Surgery
DX: S83.241A Other tear of medial meniscus, current injury, right knee, initial encounter (principal); M17.11 Unilateral primary osteoarthritis, right knee
CPT/HCPCS: 73721

== ENCOUNTER 2023-05-17 15:00 | Outpatient (RCR) | payer MEDICAID, SELFPAY ==
--- NOTE | 2022-12-20 11:16 | HP.PTEVAL ---
Patient's Visit Information CRYSTAL OVALLES Jr. is a 47 year old M referred to Physical Therapy by Dr. Hong Black DO with a diagnosis of R knee med meniscus tear. Date of Evaluation: 12/15/22 Physical Therapist: Ruperto Montoya PT, ATC - Visit Plan Frequency: 2-3x /Week Duration: 4-6 Weeks Plan: R LE stretching and strengthening, core stab ex's, balance and proprio, bike, and HEP - Subjective Pt reports he began to notice R knee pain approximately 6 weeks ago. Pt reports his pain had an insidious onset in nature. Pt reports he had his R knee x-rayed at that time. Pt reports he was referred to an orthopedic at that time where his R knee was drained and he received a cortisone injection, but the pain would not go away. Pt reports he then had an MRI which revealed a torn medial meniscus. Pt reports he was told he needs to have surgery on his R knee for a meniscectomy or a TKA, but that he has to have PT first. R knee does click, but doesn't lock up or give out on him. Pt denies tingling or numbness at this time. Pain keeps pt from being able to sleep during the night occasionally. Pt reports his job requires him to be on his feet all day long, and requires him to push and pull a lot. Pt reports he has stairs at work and at home and has to negotiate them one step at a time. 0/10 pain at rest, 8/10 at worst - Pain R knee Pain Intensity (Out of 10): 0 Pain Intensity Range: 8 - Objective Neuro: B LE sensation is WNL to light touch. B patellar reflex= 2/3. Girth at joint line: R knee 43 cm, L knee 42 cm. ROM: L knee 0-5-132 ; R knee 0-17-117. MMT: L knee flex= 39, ext= 51 #F; R knee flex= 32, ext= 35 #F - Balance/Special Test Scores Lower Extremity Functional Score: 32 - Goals Goal 1:: Decrease R knee pain x 50% to aid with sleep Goal Time Frame: 4-6 Weeks Goal 2:: Increase R knee strength x 10 #F to aid with stair negotiation Goal Time Frame: 4-6 Weeks Goal 3:: Increase R knee ROM x 20 degrees to aid with restoring a more normalized gait pattern. Goal Time Frame: 4-6 Weeks Goal 4:: I with HEP Goal Time Frame: 4-6 Weeks - Rehabilitation Potential Physical Therapy Diagnosis: Pt has R knee pain, weakness, and limited ROM secondary to R knee medial meniscus tear Rehabilitation Potential: Good - Anticipated Interventions Patient/Client Instruction: Educate patient on: Condition, Plan of Care For the Purpose of:: To improve self management Therapeutic Exercise to Include: Strength training, Endurance training, Balance training, Flexibilty training, Gait and locomotor training, Active ROM, Dynamic Lumbar Stabilization For the Purpose of:: To decrease pain, To increase ROM, To improve muscle performance and motor function Cryotherapy (ice pack, ice massage): Yes For the Purpose of:: To decrease pain Thank you for the opportunity to evaluate your patient. For Medicare and Medicare HMO plans, please review the plan of care and approve it. It will need to be FAXED BACK to us at [phone] for Medicare purposes. For Medicare only, by signing this I certify the plan of care. Please let me know if there are questions or concerns regarding this plan of care. Physician Signature: Date:
--- NOTE | 2023-04-03 15:42 | HP.PTREVAL ---
Dr. Hong Black, DO, It has been my pleasure to treat CRYSTAL OVALLES Jr. over the last 5 visits for R knee med meniscus tear. Please see the progress note below for an update on the physical therapy plan of care! Subjective: I am finally able to return today since My car got fixed. Objective/Function: R knee pain ranges from 5-10/10. R knee strength: flex= 39, ext= 36 #F. R knee ROM: 0-6-120 degrees. Pt has improved well with ROM. Strength and pain re relatively unchanged at this time. Plan Plan: Attempt to get 12 more visits approved to focus on pain reduction and strengthening of R knee. Balance/Gait/Functional tests - Balance/Special Test Scores Lower Extremity Functional Score: 22 Goals Goal 1:: Decrease R knee pain x 50% to aid with sleep Goal Time Frame: 4-6 Weeks Goal Progress: Not Progressing Goal 2:: Increase R knee strength x 10 #F to aid with stair negotiation Goal Time Frame: 4-6 Weeks Goal Progress: Progressing Goal 3:: Increase R knee ROM x 20 degrees to aid with restoring a more normalized gait pattern. Goal Time Frame: 4-6 Weeks Goal Progress: Progressing Goal 4:: I with HEP Goal Time Frame: 4-6 Weeks Goal Progress: Progressing Anticipated Interventions Patient/Client Instruction: Educate patient on: Condition, Plan of Care For the Purpose of:: To improve self management Therapeutic Exercise to Include: Strength training, Endurance training, Balance training, Flexibilty training, Gait and locomotor training, Active ROM, Dynamic Lumbar Stabilization For the Purpose of:: To decrease pain, To increase ROM, To improve muscle performance and motor function Cryotherapy (ice pack, ice massage): Yes For the Purpose of:: To decrease pain Please do not hesitate to contact me at [phone] by phone or if you have questions or concerns regarding this new plan of care! Sincerely, Ruperto Montoya, PT, ATC
--- NOTE | 2023-05-17 15:29 | HP.PTDCSUM ---
Discharge Summary D/C summary: It has been my pleasure to treat CRYSTAL OVALLES Jr. referred by Dr. Hong Black DO, with the diagnosis of R knee med meniscus tear for a total of 14 visit(s). Discharge Date: Please see the following information for a summary of their discharge status. Subjective Subjective: Pain is mild today Pain R knee: Pain Intensity (Out of 10): 1 Overall Improvement % Improvement: 75 Objective Objective/Function: R knee pain ranges 1-6/10 R knee MMT: flex= 35, ext= 59 #F R knee ROM: 0-15-125 degrees Goals Goal 1:: Decrease R knee pain x 50% to aid with sleep Goal Progress: Progressing Goal 2:: Increase R knee strength x 10 #F to aid with stair negotiation Goal Progress: Goal Met Goal 3:: Increase R knee ROM x 20 degrees to aid with restoring a more normalized gait pattern. Goal Progress: Goal Met Goal 4:: I with HEP Goal Progress: Goal Met Plan Plan: Discharge to [facility] D/C Information d/c sentence: If there are questions or concerns regarding this patient's physical therapy, please feel free to call me at [phone]. Thank you for the referral of this patient. Sincerely, Ruperto Montoya, PT, ATC Balance/Gait/Functional tests Balance/Special Test Scores Lower Extremity Functional Score: 61
== END 2023-05-17 19:00 | disposition home or self-care (01) ==
LOC: PT 15:00
PROVIDERS: PCP Internal Medicine; Referring Provider Orthopaedic Surgery; Visit Provider Orthopaedic Surgery
DX: M17.11 Unilateral primary osteoarthritis, right knee (principal); S83.241D Other tear of medial meniscus, current injury, right knee, subsequent encounter
CPT/HCPCS: 97110; 97161; 97164